=== PATIENT | female | born 1990 | race Caucasian/White ===

== ENCOUNTER 2023-06-25 14:42 | Emergency (ER) | payer BC, SELFPAY ==
[2023-06-25] VITALS (22 sets, daily range): BP systolic 133–166; BP diastolic 82–106; PULSE 60–91; RESP 16–20; TEMP 36.2; O2SAT 95–98
--- NOTE | ~2023-06-25 | XR_ITS ---
EXAMINATION: XR abdomen/kub 1V DATE: 06/25/2023 15:09 INDICATION: Abdominal pain and nausea TECHNIQUE: A supine view of the abdomen on 3 radiographs was obtained. COMPARISON: None. FINDINGS: Small amount of stool primarily in the proximal colon. No dilated loops of gas-filled bowel to sugges t obstruction. Couple small round phleboliths in the left hemipelvis. Bones are unremarkable. Visuali zed portions of the lung bases are clear. IMPRESSION: 1. Normal bowel gas pattern. Reviewed, dictated and finalized at location A.
--- NOTE | 2023-06-25 14:48 | ED.ABDPAIN ---
HPI - Abdominal Pain General Chief Complaint: Abdominal Pain Stated Complaint: abdominal pain Time Seen by Provider: 06/25/23 14:48 Source: patient Mode of arrival: ambulatory Limitations: no limitations History of Present Illness HPI narrative: Patient is a 33-year-old female with right upper quadrant abdominal pain for the past 3 days. She has associated nausea vomiting and diarrhea. MD elicited complaint: abdominal pain Pertinent past history: none Onset (ago): day(s) (3) Pain Consistency: constant Location: RUQ Severity: severe Pain scale (0-10): 8 Quality: cramping and sharp Radiation: R flank Migration to: no migration Exacerbating factors: other ( palpation of the area) Relieving factors: nothing Associated symptoms: nausea, vomiting, diarrhea and chills Related Data Home Medications Medication Instructions Recorded Confirmed divalproex 500 mg tablet,delayed 500 mg PO BID 06/25/23 06/25/23 release hydroxyzine HCl 50 mg tablet 50 mg PO QID 06/25/23 06/25/23 Allergies Allergy/AdvReac Type Severity Reaction Status Date / Time No Known Allergies Allergy Verified 06/25/23 14:50 Review of Systems Review of Systems: All systems reviewed & are unremarkable except as noted in HPI and below Constitutional: Constitutional: Reports no additional constitutional complaints Eyes: Eyes: Reports no additional eye complaints ENT: Reports system reviewed and no additional complaints, except as documented Cardiovascular: Cardiovascular: Reports no additional cardiovascular complaints Respiratory: Respiratory: Reports no additional respiratory complaints Gastrointestinal: Gastrointestinal: Reports no additional gastrointestinal complaints Genitourinary: Genitourinary: Reports no additional female genitourinary complaints Musculoskeletal: Musculoskeletal: Reports no additional musculoskeletal complaints Integumentary/Breasts: Skin/Breast: Reports system reviewed and no additional complaints, except as docu Neurologic: Reports system reviewed and no additional complaints, except as documented Psychiatric: Psychiatric: Reports no additional psychiatric complaints Endocrine: Endocrine: Reports no additional endocrine complaints Hematologic/Lymphatic: Hematologic/Lymphatic: Reports no additional hematologic/lymphatic complaints Allergic/Immunologic: Allergic/Immunologic: Reports no additional allergic/immunologic complaints PMFSH Social History Social History Smoking status: Current every day smoker Alcohol intake: current Exam Const: General: healthy appearing Nutritional Appearance: well nourished Orientation/consciousness: patient oriented x3 HENMT: Head: normal to inspection Ears: external ears normal Face/Nose/Sinus: Normal external nose present Eyes: Conjunctivae: conjunctivae normal Pupils: Equal, round and reactive pupils present EOM: EOMs intact bilaterally Neck: Neck: normal visual inspection Chest: Chest palpation & inspection: normal inspection of the chest Resp: Effort & Inspection: normal respiratory effort and not labored Auscultation: clear to auscultation bilaterally Cardio: Rate: regular rate Rhythm: regular rhythm Heart sounds: no murmurs GI: Inspection: non-distended GI Palp: Yes Soft to palpation, Yes Tenderness to palpation present (GI) ( right upper quadrant with Barone sign positive), Yes Guarding due to palpation present (GI), No Rigid due to palpation, No Hernia present, No Palpable mass present and No Rebound tenderness present Auscultation: normal bowel sounds : General: Yes bladder normal to palpation Back/Spine/Pelvis: Back: no CVA tenderness Skin: General skin exam: normal color Rashes: no rashes Wounds: no wounds Neuro: General: patient oriented x3 Cranial nerves: Yes Nystagmus not present Speech: normal speech Extrem: General: normal to inspection Psych: Mental Status: mental stat
--- NOTE | 2023-06-25 15:31 | PC.NURSE ---
Screen Operator at bedside drawing labs. Urine sample had already been transported to lab by PCT.
[2023-06-25 15:37] LABS: Basophils Absolute Auto 0.08 K/mm3 (0.00-0.10); Basophils Percent Auto 0.6 % (0.0-1.0); Eosinophils Absolute Auto 0.54 K/mm3 (0.02-0.50); Eosinophils Percent Auto 3.8 % (1.0-6.0); Hematocrit 42.3 % (35.0-49.0); Hemoglobin 14.4 g/dL (12.0-15.0); Immature Granulocyte Absolute 0.08 K/mm3 (0.00-0.00); Immature Granulocyte Percent A 0.6 % (0.0-0.0); Lymphocytes Percent Auto 30.6 % (18.0-42.0); Mean Corpuscular Hemoglobin 30.6 pg (27.0-31.0); Mean Platelet Volume 11.3 fl (9.2-11.8); Monocytes Absolute Auto 0.68 K/mm3 (0.10-0.90); Monocytes Percent Auto 4.7 % (2.0-11.0); Neutrophils Absolute Auto 8.59 K/mm3 (1.70-7.20); Neutrophils Percent Auto 59.7 % (50.0-70.0); Platelet Count Result 275 K/mm3 (150-420); Red Cell Distribution Width 11.8 % (11.6-14.4); White Blood Count 14.4 K/mm3 (4.8-10.8)
[2023-06-25 15:49] LABS: Bilirubin Urine Negative (Negative); Blood Urine 3+ (Negative); Color Urine Yellow (Yellow); Glucose Urine UA Negative (Negative); Ketones Urine Negative (Negative); Leukocyte Esterase Ur Negative LEU/UL (Negative); Nitrate Urine Negative (Negative); Protein Urine Trace (Negative); Specific Grav Ur >= 1.030 (1.010-1.020); Urobilinogen Urine 0.2 mg/dL (0.2-1.0)
[2023-06-25 15:53] LABS: INR 0.9; Partial Thromboplastin Time 26.6 Sec (23.9-30.70); Prothrombin Time 10.1 Seconds (9.50-12.1)
[2023-06-25 15:56] LABS: Alanine Aminotransferase 11 U/L (14-59); Albumin Level 3.3 g/dL (3.4-5.0); Alkaline Phosphatase 57 U/L (46-116); Anion Gap 10 mmol/L (4-12); Appearance Urine Sl Cloudy (Clear); Aspartate Amino Transferase 14 U/L (15-37); Bilirubin,Total 0.3 mg/dL (0.00-1.00); Blood Urea Nitrogen 9 mg/dL (7-18); Calcium 8.9 mg/dL (8.5-10.1); Carbon Dioxide 26 mmol/L (21-32); Chloride 103 mmol/L (98-108); Estimated Glomerular Filt Rate > 60; Glucose 107 mg/dL (70-99); Lipase 20 U/L (16-77); Osmolality Calculated 286 mOsm/kg (285-295); Potassium 3.7 mmol/L (3.5-5.1); Sodium 139 mmol/L (136-145); Total Protein 7.5 g/dL (6.4-8.2)
[2023-06-25 15:57] LABS: Add Urine Microscopic? YES; Amorphous Sediment Urine Few; Bacteria Urine 1+ /hpf; Mucus Urine Moderate /lpf; Squamous Epithelial Cell Urine Few /hpf (Few)
[2023-06-25 16:00] LABS: Lactic Acid Reflex 0.6 mmol/L (0.4-2.0)
--- NOTE | 2023-06-25 16:40 | PCDIET ---
ERP at bedside discussing plan of care with Pt. ERP concerned for possible issue with gallbladder and wants to obtain a CT, however CT scanner at this facility is not working currently. Pt agreeable to EMS transport to [facility] for CT scan, then transport back to [place] to await dispo decision.
--- NOTE | 2023-06-25 16:45 | PC.NURSE ---
call to [facility] [employer], request to sent pt for ct scan. spoke with mattie in ct scan to notify. will send pt with ems for ct and return.
[2023-06-25 16:56] LABS: Pregnancy On Board Control Positive; Urine Pregnancy Test Negative
[2023-06-25] MEDS: MORPHINE SULFATE (*CRX) 2 MG/ML INJ 4 MG IV PUSH (16:57)
[2023-06-25] MEDS: PIPERACILLN/TAZ 3.375GM/NS50ML 3.375 GM/50 ML BAG IVPB (16:59)
--- NOTE | 2023-06-25 17:18 | PC.NURSE ---
[facility] has arrived to transport Pt to [facility] for CT scan. Pt out of dept until further notice.
--- NOTE | 2023-06-25 18:30 | PC.NURSE ---
Pt has returned from [facility]. Awaiting CT results.
--- NOTE | 2023-07-02 12:41 | PC.NURSE ---
07/02/23 FINAL BLOOD CULTURE NO GROWTH AFTER 5 DAYS
== END 2023-06-25 20:19 | disposition short-term general hospital (02) ==
PROVIDERS: Emergency Provider Emergency Medicine
DX: K81.9 Cholecystitis, unspecified (principal); F17.210 Nicotine dependence, cigarettes, uncomplicated
CPT/HCPCS: 36415; 74018; 74177; 80053; 81001; 81025; 83605; 83690; 85025; 85610; 85730; 87040; 96365; 96375; 99284; 99285; J2270; J2543; Q9967

== ENCOUNTER 2023-06-25 17:34 | Outpatient (CLI) | payer OTHER, SELFPAY ==
--- NOTE | ~2023-06-25 | CT_ITS ---
EXAMINATION: CT abdomen pelvis w con DATE: 06/25/2023 18:04 INDICATION: Right upper quadrant abdominal pain radiating to the back TECHNIQUE: Computed tomography (CT) of the abdomen and pelvis was performed with 100 mL Omnipaque-350 intravenous contrast. Automated exposure control and iterative reconstruction technique were employe d. The dose-length product was 1350.92 mGy-cm. COMPARISON: None FINDINGS: Minimal dependent atelectasis in bilateral lower lobes. Calcified right hilar lymph node along the co uple small splenic calcific lesions consistent with old granulomatous disease. Heart size is normal. No pericardial or pleural effusion. Gallstones within the gallbladder which without dilation or wall thickening but with trace amount of pericholecystic fluid at the gallbladder fossa. Liver is normal. No intra or extra hepatic biliary ductal dilation. Pancreas, bilateral adrenal glands and kidneys are normal. Bowels including the appendix are normal. Bladder, uterus and bilateral adnexa are normal. N o free intraperitoneal gas or fluid. No pathologically enlarged abdominal or pelvic lymphadenopathy. Mild to moderate lower thoracic spondylosis with minimal likely physiologic anterior wedging of a few lower thoracic vertebral bodies. IMPRESSION: 1. Cholelithiasis with trace amount of pericholecystic fluid which is suspicious for acute cholecysti tis but without the gallbladder dilation or abnormal wall thickening more typically seen with acute c holecystitis. Consider HIDA scan to assess for cystic duct patency. Reviewed, dictated and finalized at location A. IMPRESSION: 1. Cholelithiasis with trace amount of pericholecystic fluid which is suspiciou s for acute cholecystitis but without the gallbladder dilation or abnormal wall thickening more typically seen with acute cholecystitis. Consider HIDA scan to assess for cystic duct patency.
== END 2023-06-25 17:35 | disposition home or self-care (01) ==
LOC: ANHIMG 17:42
DX: R10.11 Right upper quadrant pain (principal); K80.20 Calculus of gallbladder without cholecystitis without obstruction
CPT/HCPCS: 74177; Q9967

== ENCOUNTER 2023-06-25 21:27 | Observation (INO) | payer BC, SELFPAY ==
[2023-06-25 20:48] VITALS: BP 133/96; PULSE 73; RESP 18; TEMP 36.6; O2SAT 98; BMI 44.3
--- NOTE | 2023-06-25 21:06 | ADMGEN ---
This patient, Arelis Park, was admitted to 2 Medical Room 242-01. Patient/family oriented to hospital policies and general routines including ID bracelet, bed and alarms, visiting hours, pain management, procedures, bathroom and other care routines, personal items, smoking policy, room service/diet, and visiting hours. Information on how to activate the Rapid Response Team has been discussed. Patient/Family are encouraged to report perceived risks to care and to ask questions if they do not understand what they are told or what they should do.
[2023-06-25] MEDS: LACTATED RINGERS 1,000 ML 125 ML IV CONT (21:57)
[2023-06-25] MEDS: ONDANSETRON INJ 4 MG/2 ML VIAL IV PUSH (21:59)
[2023-06-25] MEDS: IBUPROFEN IV 400 MG in SODIUM CHLORIDE 0.9% IV 100 ML 208 MG IVPB (22:02)
[2023-06-25] MEDS: DIVALPROEX SODIUM DR 250 MG TABEC 500 MG PO (22:14)
[2023-06-25] MEDS: NICOTINE (*PBKC) 21 MG PATCH 1 PATCH TRANSDERM (22:14)
[2023-06-26] VITALS (14 sets, daily range): BP systolic 111–180; BP diastolic 70–98; PULSE 53–80; RESP 14–22; TEMP 36.2–36.9; O2SAT 93–100
[2023-06-26] MEDS: LACTATED RINGERS 1,000 ML 125 ML IV CONT (04:58)
[2023-06-26 05:02] LABS: Hematocrit 39.2 % (37.0-47.0); Hemoglobin 13.1 g/dL (12.0-15.0); Mean Corpuscular HGB Conc 33.4 g/dl (32-36); Mean Corpuscular Hemoglobin 30.9 pg (26-34); Mean Corpuscular Volume 92.5 fl (80-100); Mean Platelet Volume 11.6 fl (7.4-10.4); Platelet Count Result 250 k/mm3 (150-375); Red Blood Count 4.24 M/mm3 (4.2-5.4); Red Cell Distribution Width 12.2 % (11.5-14.5); White Blood Count 13.1 K/mm3 (4.5-10.0)
[2023-06-26 05:21] LABS: Alanine Aminotransferase 26 U/L (6-35); Albumin Level 3.8 g/dL (3.5-5.1); Alkaline Phosphatase 64 U/L (38-126); Anion Gap 5 mmol/L (4-12); Aspartate Amino Transferase 28 U/L (14-36); Bilirubin,Total 0.7 mg/dL (0.2-1.3); Blood Urea Nitrogen 7 mg/dL (7-17); Calcium 8.9 mg/dL (8.4-10.2); Carbon Dioxide 25 mmol/L (22-30); Chloride 108 mmol/L (98-107); Estimated CRCL calculation 87 ml/min; Estimated Glomerular Filt Rate > 60; Glucose 98 mg/dL (65-110); Lipase 41 U/L (23-300); Potassium 3.9 mmol/L (3.4-5.0); Sodium 138 mmol/L (137-145)
[2023-06-26] MEDS: IBUPROFEN IV 400 MG in SODIUM CHLORIDE 0.9% IV 100 ML 208 MG IVPB (06:15)
[2023-06-26] MEDS: NICOTINE (*PBKC) 21 MG PATCH 1 PATCH TRANSDERM (10:34)
[2023-06-26] MEDS: MORPHINE SULFATE (*CRX) 2 MG/ML INJ IV PUSH ×3 (10:35→15:50)
--- NOTE | 2023-06-26 12:10 | PM.IMHP ---
H&P: HPI History of Present Illness Date/Time: 06/26/23 12:10 Chief Complaint: Right upper quadrant pain Narrative: This is a 33-year-old woman who presented to the [facility] yesterday with complaints of abdominal pain since Monday night. She had eaten out at a restaurant Monday night prior to the pain starting. She has been having intermittent pains for the past several weeks but this has become more constant now. She also had some nausea and vomiting. In the emergency department in [place], she was noted to have an elevated white blood count and imaging showed evidence of acute cholecystitis. She was then transferred to [facility] for further treatment. Review of Systems Review of Systems: All systems reviewed & are unremarkable except as noted in HPI and below Constitutional: Constitutional: Denies chills and Denies fever(s) Eyes: Eyes: Denies change in vision ENT: Denies hearing loss, Denies neck pain and Denies sore throat Cardiovascular: Cardiovascular: Denies chest pain and Denies dyspnea Respiratory: Respiratory: Denies cough, Denies dyspnea and Denies wheezing Gastrointestinal: Gastrointestinal: Reports as per HPI Genitourinary: Genitourinary: Denies hematuria and Denies dysuria Musculoskeletal: Musculoskeletal: Denies arthralgias, Denies joint swelling and Denies neck pain Allergic/Immunologic: Allergic/Immunologic: Denies wheezing PMFSH Past Medical History Medical History (Updated 06/26/23 @ 12:14 by Larry Multani DO) Anxiety Bipolar disorder Tobacco abuse Surgical History Surgical History (Updated 06/26/23 @ 12:12 by Larry Multani DO) History of ankle surgery Family History Family History (Updated 06/25/23 @ 21:10 by Deb Danielle RN) Grandparent Acute myocardial infarction Mother History of blood clots Chronic obstructive pulmonary disease Clotting disorder Grandparent Diabetes mellitus Hypertension Father Diabetes mellitus Hypertension Lipid disorder Social History Social History Smoking packs per day: 1 Smoking cigarettes per day: 20.0 Smoking status: Current every day smoker Alcohol intake: former Substance use type: marijuana Do You Feel Safe in your Home?: Yes Lack of Transportation: No Lack of Food: Never True Current Housing: I Have Housing Concerned About Future Housing: No Difficulty Paying Gas/Electric Bills: No Difficulty Paying for Meds: No Currently Unemployed: No Education: Grade School Difficulty w/ Childcare or Family Care: No Spiritual care concerns: No Meds Home Medications and Allergies Home Medications Medication Instructions Recorded Confirmed Type divalproex 500 mg tablet,delayed 500 mg PO BID 06/25/23 06/25/23 History release hydroxyzine HCl 50 mg tablet 50 mg PO QID PRN Anxiety 06/25/23 06/25/23 History lisinopril 10 mg tablet 10 mg PO DAILY 06/25/23 06/25/23 History Allergies Allergy/AdvReac Type Severity Reaction Status Date / Time No Known Allergies Allergy Verified 06/25/23 14:50 Vital Signs Vital Signs - 24 hr 06/25/23 21:21 06/25/23 20:48 06/26/23 05:13 Temperature 36.6 C 36.6 C Pulse Rate 73 59 L Respiratory Rate 18 17 Blood Pressure 133/96 H 111/70 Pulse Oximetry 98 99 Oxygen Delivery Room Air 06/26/23 08:15 Temperature Pulse Rate Respiratory Rate Blood Pressure Pulse Oximetry Oxygen Delivery Room Air Exam Const: General: alert; No acute distress Orientation/consciousness: patient oriented x3 Limitations: no limitations HENMT: Head: normocephalic and atraumatic Ears: hearing grossly normal bilaterally Face/Nose/Sinus: Normal external nose present and Normal nares present Mouth: Yes Normal oral and palatal mucosa present and Yes moist mucous membranes Eyes: General: appearance normal, both eyes and all related structures Conjunctivae:
--- NOTE | 2023-06-26 12:15 | WPDHPUPDATE1 ---
History and Physical Update Update Date/Time: 06/26/23 12:15 History and Physical has been reviewed, including an updated exam of the patient. There are NO changes in the patient's condition. Risks, benefits, and alternatives have been discussed and questions answered. Patient agrees to proceed with procedure.
[2023-06-26] MEDS: ONDANSETRON INJ 4 MG/2 ML VIAL IV PUSH ×2 (12:28→22:39)
--- NOTE | 2023-06-26 18:31 | PC.NURSE ---
To OR via bed, IV R forearm.
--- NOTE | 2023-06-26 18:49 | WPDANESEPPF ---
Anes - Initial Pre Proc Eval Procedure: Operation Date: 06/26/23 19:00 Proposed Procedures p Laparoscopic Cholecystectomy, Possible Open - Larry Multani DO Date/Time: 06/26/23 18:49 Surgeon: Larry Multani DO Pre Op Diagnosis: Acute calculous chloecystitis Patient Data Age: 33 Gender: F Height: 1.55 m Weight: 106.5 kg Last Vital Signs Temp 36.4 C 06/26/23 14:00 Pulse 60 06/26/23 14:00 Resp 14 06/26/23 14:00 BP 118/72 06/26/23 14:00 Pulse Ox 99 06/26/23 14:00 O2 Del Method Room Air 06/26/23 08:15 Allergies Allergy/AdvReac Type Severity Reaction Status Date / Time No Known Allergies Allergy Verified 06/26/23 18:53 Home Medications Medication Instructions Recorded Confirmed Type divalproex 500 mg tablet,delayed 500 mg PO BID 06/25/23 06/25/23 History release hydroxyzine HCl 50 mg tablet 50 mg PO QID PRN Anxiety 06/25/23 06/25/23 History lisinopril 10 mg tablet 10 mg PO DAILY 06/25/23 06/25/23 History Laboratory Tests 06/26/23 04:19 WBC 13.1 H K/mm3 (4.5-10.0) RBC 4.24 M/mm3 (4.2-5.4) Hgb 13.1 g/dL (12.0-15.0) Hct 39.2 % (37.0-47.0) MCV 92.5 fl (80-100) MCH 30.9 pg (26-34) MCHC 33.4 g/dl (32-36) RDW 12.2 % (11.5-14.5) Plt Count 250 k/mm3 (150-375) MPV 11.6 H fl (7.4-10.4) Sodium 138 mmol/L (137-145) Potassium 3.9 mmol/L (3.4-5.0) Chloride 108 H mmol/L (98-107) Carbon Dioxide 25 mmol/L (22-30) Anion Gap 5 mmol/L (4-12) BUN 7 mg/dL (7-17) Creatinine 0.90 mg/dL (0.7-1.0) Estim Creat Clear Calc 87 ml/min Estimated GFR > 60 (59 - ) Glucose 98 mg/dL (65-110) Calcium 8.9 mg/dL (8.4-10.2) Total Bilirubin 0.7 mg/dL (0.2-1.3) AST 28 U/L (14-36) ALT 26 U/L (6-35) Alkaline Phosphatase 64 U/L (38-126) Total Protein 7.0 g/dL (6.3-8.2) Albumin 3.8 g/dL (3.5-5.1) Lipase 41 U/L (23-300) Patient hx anesthesia problems: none Family hx anesthesia problems: none Results Review: All pre-operative results and documents have been reviewed as part of the pre-operative evaluation. [facility] Past Medical History Medical History (Updated 06/26/23 @ 18:50 by Antonio Kerr DO) Anxiety Bipolar disorder History of suicide attempt Hypertension Tobacco abuse Surgical History Surgical History (Updated 06/26/23 @ 12:12 by Larry Multani DO) History of ankle surgery Family History Family History (Updated 06/25/23 @ 21:10 by Deb Danielle RN) Grandparent Acute myocardial infarction Mother History of blood clots Chronic obstructive pulmonary disease Clotting disorder Grandparent Diabetes mellitus Hypertension Father Diabetes mellitus Hypertension Lipid disorder Social History Social History Smoking packs per day: 1 Smoking cigarettes per day: 20.0 Smoking status: Current every day smoker Alcohol intake: former Substance use type: marijuana Do You Feel Safe in your Home?: Yes Lack of Transportation: No Lack of Food: Never True Current Housing: I Have Housing Concerned About Future Housing: No Difficulty Paying Gas/Electric Bills: No Difficulty Paying for Meds: No Currently Unemployed: No Education: Grade School Difficulty w/ Childcare or Family Care: No Spiritual care concerns: No Anes - Eval Final PreProcedure Day of Procedure 06/26/23 18:49 Patient weight: morbidly obese Heart: regular rate and rhythm Lungs: clear to auscultation Airway: Mallampati scale class II and special considerations poor dentition Neurological: alert and oriented Last oral intake: >/= 8 hours ASA classification: III Emergent: no Anesthetic plan: proceed Anesthesia type and monitoring: general ETT and standard monitoring Results Review: All pre-operative results and documents have been rev
[2023-06-26] MEDS: ceFAZolin 2 GM/D5W 50 ML 2 GM/50 ML BAG IVPB (19:30)
[2023-06-26] MEDS: BUPIVACAINE/EPINEPHRINE 0.5% 50 ML VIAL 30 ML INFILTRATE (19:44)
--- NOTE | 2023-06-26 20:23 | W.PM.PROC2 ---
Procedure Note - Detailed Date of Procedure 06/26/23 Pre-op Diagnosis Acute calculous cholecystitis Post-op Diagnosis Same (Acute/chronic calculous cholecystitis) Procedure Performed Laparoscopic Cholecystectomy Surgeon Larry Multani DO Anesthesia General and Local (0.5% bupivacaine) Indications This is a 33-year-old woman who presented to the emergency department in [place] with right upper quadrant pain for the past several days. She has also had symptoms like this off and on for the past few weeks. She has noticed that eating heavier foods causes her pain. In the emergency department she was noted to have an elevated white blood count and CT showed evidence of acute calculous cholecystitis. She was transferred to [facility] for further treatment. Discussions were made with the patient about treatment options and decision was made to proceed with laparoscopic cholecystectomy, possible open. Findings Laparoscopic cholecystectomy was performed. The patient was found to have evidence of chronic cholecystitis. The gallbladder wall was thickened and there was inflammatory changes around the neck of the gallbladder. There appeared to be a large gallstone lodged at the distal neck of the gallbladder. The cystic duct appeared normal in size just beyond this. The gallbladder was removed and sent to the lab for pathology. Description of Procedure Procedure as well as risks, benefits, and alternatives were discussed with patient. Written consent was obtained and placed in chart prior to procedure. The patient was brought back to surgical suite. Patient was placed in supine position on operating table. Time-out was done to confirm patient and procedure. Patient was then intubated by the anesthesia department. Abdomen was prepped and draped in sterile fashion using chlorhexidine prep. 0.5% bupivacaine with epinephrine was infiltrated at each site of incision. A 5 millimeter incision was made near the umbilicus, and a 5 millimeter Optiview trocar was advanced through the abdominal layers under direct visualization. Once inside the abdominal cavity, carbon dioxide was insufflated to create a pneumoperitoneum. The camera was inserted and the abdomen was inspected. No immediate abnormalities were identified. The patient was placed in reverse Trendelenburg position and rotated slightly to the left. An 11 millimeter incision was made in the subxiphoid region, and an 11 millimeter trocar was inserted under direct visualization. Two 5 millimeter incisions were made in the right upper quadrant, and two 5 millimeter trocars were inserted under direct visualization. The gallbladder was identified and grasped at the fundus and retracted superiorly. It was then grasped at the infundibulum retracted laterally. Careful dissection around the neck of the gallbladder was performed using blunt dissection with a [place] grasper and hook electrocautery. The cystic duct was identified, and a window was created behind it. The cystic artery was also identified and a window was created behind it. The critical view of safety was identified, visualizing the cystic duct running directly into the neck of the gallbladder, and the cystic artery running directly into the wall of the gallbladder. A 5 millimeter clip family preservation officer was then used to place 2 clips proximally and 1 clip distally on both the cystic duct and cystic artery. They were then both transected using endoscopic scissors. Once safely away from the jeremy hepatitis, the gallbladder was dissected free from the liver bed using hook electrocautery. Hemostasis was achieved along the way. The gallbladder was removed completely and then removed through the subxiphoid port. The liver bed was then inspected. Hemostasis appeared adequate, and our clips appeared secure. The area was gently irrigated with sterile saline. No other abnormalities were seen. The patient was flattened out in bed, and 1 final inspection was m
[2023-06-26] MEDS: LACTATED RINGERS 1,000 ML 30 ML IV CONT (20:38)
[2023-06-26] MEDS: fentaNYL CITRATE INJ (*CRX) 100 MCG/2 ML VIAL 25 MCG IV PUSH ×4 (21:41→21:49)
[2023-06-26] MEDS: HYDROmorphone HCL INJ (*CRX) 1 MG/ML SYR 0.5 MG IV PUSH ×2 (21:53→21:58)
[2023-06-27] MEDS: MORPHINE SULFATE (*CRX) 4 MG/ML INJ IV PUSH ×2 (00:10→02:33)
[2023-06-27] MEDS: LACTATED RINGERS 1,000 ML 100 ML IV CONT (00:14)
[2023-06-27] MEDS: HYDROcodone/acetaminophen (*CRX) 10-325 MG TABLET 1 TAB PO ×3 (03:44→12:56)
[2023-06-27 03:50] VITALS: BP 112/61; PULSE 61; RESP 18; TEMP 36.8; O2SAT 94
[2023-06-27 05:36] LABS: Hematocrit 39.4 % (37.0-47.0); Hemoglobin 13.3 g/dL (12.0-15.0); Mean Corpuscular HGB Conc 33.8 g/dl (32-36); Mean Corpuscular Hemoglobin 31.2 pg (26-34); Mean Corpuscular Volume 92.5 fl (80-100); Mean Platelet Volume 11.8 fl (7.4-10.4); Platelet Count Result 237 k/mm3 (150-375); Red Blood Count 4.26 M/mm3 (4.2-5.4); Red Cell Distribution Width 11.9 % (11.5-14.5); White Blood Count 23.2 K/mm3 (4.5-10.0)
[2023-06-27] MEDS: ONDANSETRON INJ 4 MG/2 ML VIAL IV PUSH (05:52)
[2023-06-27] MEDS: IBUPROFEN 600 MG TABLET PO (05:52)
[2023-06-27 05:54] LABS: Anion Gap 8 mmol/L (4-12); Blood Urea Nitrogen 6 mg/dL (7-17); Calcium 9.2 mg/dL (8.4-10.2); Carbon Dioxide 23 mmol/L (22-30); Chloride 105 mmol/L (98-107); Estimated CRCL calculation 97 ml/min; Estimated Glomerular Filt Rate > 60; Glucose 118 mg/dL (65-110); Potassium 4.4 mmol/L (3.4-5.0); Sodium 136 mmol/L (137-145)
[2023-06-27 07:50] VITALS: BP 152/81; PULSE 60; RESP 14; TEMP 36.6; O2SAT 98
--- NOTE | 2023-06-27 08:03 | WPDANESPN ---
Anes - Prog Note Post-Op Date/Time: 06/27/23 08:03 Cardiovascular status: normal Respiratory status: normal Airway patency: baseline Mental status: baseline Post-Op hydration status: normal Vital Signs: Last Vital Signs Temp 36.8 C 06/27/23 03:50 Pulse 61 06/27/23 03:50 Resp 18 06/27/23 03:50 BP 112/61 06/27/23 03:50 Pulse Ox 94 06/27/23 03:50 O2 Del Method Nasal Cannula 06/26/23 22:00 O2 Flow Rate 2 06/26/23 22:00 FiO2 28 06/26/23 21:00 Pain Score (VAS): 2 I/O: Intake & Output 06/26/23 06/27/23 06/27/23 23:59 07:59 15:59 Intake Total 450 450 Output Total 500 Balance -50 450 Laboratory Tests 06/27/23 04:55 06/27/23 04:55 06/27/23 04:55 WBC 23.2 H RBC 4.26 Hgb 13.3 Hct 39.4 MCV 92.5 MCH 31.2 MCHC 33.8 RDW 11.9 Plt Count 237 MPV 11.8 H Sodium 136 L Potassium 4.4 Chloride 105 Carbon Dioxide 23 Anion Gap 8 BUN 6 L Creatinine 0.80 Estim Creat Clear Calc 97 Estimated GFR > 60 Glucose 118 H Calcium 9.2 Post-procedural complaints: none Patient Feedback: Patient satisfied with anesthetic care.
[2023-06-27 08:30] VITALS: O2SAT 98
[2023-06-27] MEDS: lisinopriL 10 MG TABLET PO (08:30)
[2023-06-27] MEDS: DIVALPROEX SODIUM DR 250 MG TABEC 500 MG PO (08:30)
[2023-06-27] MEDS: ENOXAPARIN 40 MG/0.4 ML SYRINGE SUB-Q (08:31)
[2023-06-27] MEDS: polyethylene glycoL 3350 17 GM POWD.PACK PO (08:31)
[2023-06-27] MEDS: NICOTINE (*PBKC) 21 MG PATCH 1 PATCH TRANSDERM (08:31)
[2023-06-27 09:55] VITALS: BP 138/72; PULSE 62; RESP 16; O2SAT 98
[2023-06-27 11:50] VITALS: BP 138/72; PULSE 56; RESP 18; TEMP 37; O2SAT 97
--- NOTE | 2023-06-27 13:06 | PM.DS ---
DS: Admitting Diagnosis Discharge Date 06/27/23 Admitting Diagnosis Acute cholecystitis DS: Discharge Diagnosis Discharge Diagnosis (1) Acute calculous cholecystitis: Code(s): K80.00 - Calculus of gallbladder with acute cholecystitis without obstruction Status: Acute DS: Summary Hospital Course Reason for hospitalization: This is a 33-year-old woman who presented to the [place] [facility] on 06/25/23 with complaints of abdominal pain. She has been having intermittent pains for the past several weeks but this has become more constant over the past few days.? She also had some nausea and vomiting.? In the emergency department in [place], she was noted to have an elevated white blood count and imaging showed evidence of acute cholecystitis.? She was then transferred to [facility] for further treatment. Hospital Course: Patient admitted to [facility] and discussions were made regarding treatment options. She was taken to surgery on 06/26/23 for a laparoscopic cholecystectomy. She had findings of chronic cholecystitis and was found to have a large gallstone lodged at the distal neck of the gallbladder. Surgery was uneventful. She was monitored overnight and her diet was advanced. She is tolerating a low-fat diet this morning. She is tolerating activity with minimal incisional pain. She is stable for discharge today. Follow up in [address] Dietrich. Time spent discussing smoking cessation with patient: 3 to 10 minutes Status at Discharge Functional status at discharge: independent ambulation Overall status at discharge: patient is progressing back to baseline Time Spent with Patient Time attestation: Total time spent providing and/or coordinating discharge services: Exam Const: General: comfortable and no acute distress Resp: Effort & Inspection: normal respiratory effort Auscultation: clear to auscultation bilaterally Cardio: Rate: regular rate Rhythm: regular rhythm GI: Inspection: non-distended and incision (incisions dry and intact) GI Palp: Yes Soft to palpation, Yes Tenderness to palpation present (GI) (incisional) and No Guarding due to palpation present (GI) Auscultation: normal bowel sounds Neuro: General: moves all extremities and no focal motor deficits Extrem: General: no calf tenderness and no edema Psych: Mental Status: mental status grossly normal Insight: Good insight present (Psych) DS: Data Data Completed and Pending Pending studies at discharge: Pending at discharge 06/26/23 19:42 Surgical [PTH] Routine Labs on day of discharge: Labs from last 24 hours 06/27/23 04:55 WBC 23.2 H RBC 4.26 Hgb 13.3 Hct 39.4 MCV 92.5 MCH 31.2 MCHC 33.8 RDW 11.9 Plt Count 237 MPV 11.8 H Sodium 136 L Potassium 4.4 Chloride 105 Carbon Dioxide 23 Anion Gap 8 BUN 6 L Creatinine 0.80 Estim Creat Clear Calc 97 Estimated GFR > 60 Glucose 118 H Calcium 9.2 Procedures/Treatments: Procedures Operation Date: 06/26/23 19:00 Actual Procedure Side Surgeon p Laparoscopic Cholecystectomy Not Applicable Larry Dietrich, DO Discharge Plan Discharge Attending physician on discharge: Larry Dietrich Discharging Clinician: Che Ricci Anticipated Discharge Date/Time: 06/27/23 13:13 Patient Disposition: Home, Self-Care Activity: may shower Diet: low fat Wound Care Instructions: incision open to air Discharge Instructions: DISCHARGE INSTRUCTION SHEET FOR HERNIA, GALLBLADDER AND APPENDIX SURGERIES DR. DIETRICH 1. May shower in 24 hours, no soaking in bath x 2weeks. 2. Call office for: Wound increasingly painful or bleeding Vomiting Fever of greater than 101 degrees 3. If no bowel movement for three days, take 1 oz. (30 ml) Milk of Magnesia or MiraLax 17g 1 to 2 times daily. 4. No heavy lifting > 10-15 pounds x 2 weeks for laparoscopic cholecystectomy or appendectomy. 5. No driv
== END 2023-06-27 14:14 | disposition home or self-care (01) ==
PROVIDERS: Admitting Provider Surgery; Visit Provider Surgery
PROC: 0FT44ZZ Resection of Gallbladder, Percutaneous Endoscopic Approach (ICD-10-PCS; CPT 47562; principal; 2023-06-26 19:00)
DX: K80.10 Calculus of gallbladder with chronic cholecystitis without obstruction (principal); I10 Essential (primary) hypertension; F31.9 Bipolar disorder, unspecified; F41.9 Anxiety disorder, unspecified; Z91.51 Personal history of suicidal behavior; F17.210 Nicotine dependence, cigarettes, uncomplicated; F12.90 Cannabis use, unspecified, uncomplicated; E66.01 Morbid (severe) obesity due to excess calories; Z68.41 Body mass index [BMI] 40.0-44.9, adult
CPT/HCPCS: 47562; 36415; 80048; 80053; 83690; 85027; 88304; A9270; G0378; J0690; J1100; J1170; J1200; J1650; J1741; J2250; J2270; J2405; J2704; J3010; J7030; J7120

== ENCOUNTER 2024-01-12 05:29 | Emergency (ER) | payer BC, SELFPAY ==
[2024-01-12 05:34] VITALS: BP 150/102; PULSE 81; RESP 18; TEMP 36.2; O2SAT 100
--- NOTE | 2024-01-12 05:47 | ED.DENTAL ---
HPI - Dental/Oral General Chief complaint: Dental/Oral Stated complaint: Dental Problem Time Seen by Provider: 01/12/24 05:41 Source: patient Mode of arrival: ambulatory Limitations: no limitations History of Present Illness HPI Narrative: this is a 34-year-old female with history of dental problems with a tooth decay presents with lower right molar tooth decay with surrounding inflammation and right lower jaw swelling with some right submandibular gland inflammation with no fever chills no shortness of breath. MD Complaint: tooth pain Teeth map: 1. dental pain with surrounding gum inflammation Onset (ago): day(s) Duration: constant Severity: moderate Relieving factors: NSAIDs Exacerbating factors: chewing and cold Context: history of dental caries Associated symptoms: gum swelling Related Data Home Medications Medication Instructions Recorded Confirmed divalproex 500 mg tablet,delayed 500 mg PO BID 06/25/23 01/12/24 release hydroxyzine HCl 50 mg tablet 50 mg PO QID PRN Anxiety 06/25/23 01/12/24 lisinopril 10 mg tablet 10 mg PO DAILY 06/25/23 01/12/24 Allergies Allergy/AdvReac Type Severity Reaction Status Date / Time No Known Allergies Allergy Verified 07/14/23 08:35 Review of Systems Review of Systems: All systems reviewed & are unremarkable except as noted in HPI and below PMFSH Past Medical History Medical History Anxiety Bipolar disorder History of suicide attempt Hypertension Tobacco abuse Surgical History Surgical History History of ankle surgery History of laparoscopic cholecystectomy 06/26/23 Family History Family History Grandparent Acute myocardial infarction Mother History of blood clots Chronic obstructive pulmonary disease Clotting disorder Grandparent Diabetes mellitus Hypertension Father Diabetes mellitus Hypertension Lipid disorder Social History Social History Smoking packs per day: 1 Smoking cigarettes per day: 20.0 Smoking status: Current every day smoker Alcohol intake: former Substance use type: marijuana Do You Feel Safe in your Home?: Yes Lack of Transportation: No Lack of Food: Never True Current Housing: I Have Housing Concerned About Future Housing: No Difficulty Paying Gas/Electric Bills: No Difficulty Paying for Meds: No Currently Unemployed: No Education: High School Diploma/GED Difficulty w/ Childcare or Family Care: No Spiritual care concerns: No Exam Const: General: healthy appearing and no acute distress Nutritional Appearance: well nourished Orientation/consciousness: patient oriented x3 Limitations: no limitations HENMT: Other: Right lower jaw inflammation Eyes: Conjunctivae: conjunctivae normal Neck: Neck: normal visual inspection and lymphadenopathy Chest: Chest palpation & inspection: normal inspection of the chest Resp: Effort & Inspection: normal respiratory effort Auscultation: clear to auscultation bilaterally Cardio: Rate: regular rate Rhythm: regular rhythm Course Course Emergency Course: will administer a dose of Augmentin p.o., and prescription for antibiotics and a work note to present to the patient. Vital Signs Vital signs: Vital Signs Temperature 36.2 C L 01/12/24 05:34 Pulse Rate 81 01/12/24 05:34 Respiratory Rate 18 01/12/24 05:34 Blood Pressure 150/102 H 01/12/24 05:34 Pulse Oximetry 100 01/12/24 05:34 Oxygen Delivery Room Air 01/12/24 05:34 Temperature 36.2 C L 01/12/24 05:34 Pulse Rate 81 01/12/24 05:34 Respiratory Rate 18 01/12/24 05:34 Blood Pressure 150/102 H 01/12/24 05:34 Pulse Oximetry 100 01/12/24 05:34 Oxygen Delivery Room Air 01/12/24 05:34 Critical Care Time Critical Care Time Critical Care Time: No Discharge Plan Discharge Clinical Impression: Dental abscess, Toothache Patient Disposition: Home, Self-Care Condition: Stable Instructions: Antibiotic Form, Dental Abscess (ED) Additional Instructions: Take medication as prescribed and follow with dentist for further evaluation and treatment. Prescriptions: New amoxicillin-pot clavulanate [Augmentin] 500-125 mg tablet 1 tablet PO TID Qty: 30 0RF No Action hydroxyzine HCl 50 mg tablet 50 mg PO QID PRN (Reason: Anxiety) divalproex 500 mg tablet,delayed release (DR/EC) 500 mg PO BID lisinopril 10 mg tablet 10 mg PO DAILY Follow-up/Referrals: UNKNOWN,DOCTOR [Primary Care Provider] - Stand Alone Forms: Work/School Release IP Time of Disposition: 05:52
[2024-01-12] MEDS: AMOXICILLIN/CLAVULANATE K 875-125 MG TAB 1 TABLET PO (05:50)
[2024-01-12 05:59] VITALS: BP 149/95; PULSE 74; RESP 18; O2SAT 98
== END 2024-01-12 05:59 | disposition home or self-care (01) ==
PROVIDERS: Emergency Provider Emergency Medicine
DX: K04.7 Periapical abscess without sinus (principal); I10 Essential (primary) hypertension; F17.210 Nicotine dependence, cigarettes, uncomplicated; Z79.899 Other long term (current) drug therapy
CPT/HCPCS: 99282; A9270

== ENCOUNTER 2024-01-14 09:05 | Emergency (ER) | payer BC, SELFPAY ==
--- NOTE | 2024-01-14 09:32 | PC.NURSE ---
PT LEFT WITH OUT BEING SEEN PT STATES SHE IS LEAVING AND WILL NOT BE DISRESPECTED AT 0930 PT WAS ONLY ASKED IF SHE PICKED UP THE ANTIBIOTIC THAT WAS SENT TO PHARMACY ON MONDAY NURSE DID EDUCATE PT THAT THE NEW ANTIBIOTIC WAS AUGMENTIN AND IT HAS AMOXICILLIN IN IT THAT THE ANTIBIOTIC WAS NOT JUST AMOXICILLIN PT THOUGHT IT WAS JUST [id number] AND WANTED SOMETHING STRONGER PT REEDUCATED ABOUT AUGMENTIN AND WENT TO CALL DOCTOR TO SEE PT PT LEFT BEFORE BEING SEEN BY DOCTOR PT A/0 X 4
--- NOTE | 2024-01-14 11:39 | ED_ITS ---
HPI - Dental/Oral General Chief complaint: Dental/Oral Stated complaint: dental pain Time Seen by Provider: 01/14/24 09:26 History of Present Illness HPI Narrative: LWBS Related Data Home Medications Medication Instructions Recorded Confirmed divalproex 500 mg tablet,delayed 500 mg PO BID 06/25/23 01/12/24 release hydroxyzine HCl 50 mg tablet 50 mg PO QID PRN Anxiety 06/25/23 01/12/24 lisinopril 10 mg tablet 10 mg PO DAILY 06/25/23 01/12/24 Allergies Allergy/AdvReac Type Severity Reaction Status Date / Time No Known Allergies Allergy Verified 01/14/24 09:08 [facility] Past Medical History Medical History Anxiety Bipolar disorder History of suicide attempt Hypertension Tobacco abuse Surgical History Surgical History History of ankle surgery History of laparoscopic cholecystectomy 06/26/23 Family History Family History Grandparent Acute myocardial infarction Mother History of blood clots Chronic obstructive pulmonary disease Clotting disorder Grandparent Diabetes mellitus Hypertension Father Diabetes mellitus Hypertension Lipid disorder Social History Social History Smoking packs per day: 1 Smoking cigarettes per day: 20.0 Smoking status: Current every day smoker Alcohol intake: former Substance use type: marijuana Do You Feel Safe in your Home?: Yes Lack of Transportation: No Lack of Food: Never True Current Housing: I Have Housing Concerned About Future Housing: No Difficulty Paying Gas/Electric Bills: No Difficulty Paying for Meds: No Currently Unemployed: No Education: High School Diploma/GED Difficulty w/ Childcare or Family Care: No Spiritual care concerns: No Discharge Plan Discharge Clinical Impression: Dentalgia Patient Disposition: Left Without Being Seen Prescriptions: No Action hydroxyzine HCl 50 mg tablet 50 mg PO QID PRN (Reason: Anxiety) divalproex 500 mg tablet,delayed release (DR/EC) 500 mg PO BID amoxicillin-pot clavulanate [Augmentin] 500-125 mg tablet 1 tablet PO TID Qty: 30 0RF lisinopril 10 mg tablet 10 mg PO DAILY Follow-up/Referrals: UNKNOWN,DOCTOR [Primary Care Provider] - Time of Disposition: 09:50
== END 2024-01-14 09:30 | disposition left against medical advice (07) ==
PROVIDERS: Emergency Provider Emergency Medicine
DX: K08.89 Other specified disorders of teeth and supporting structures (principal); I10 Essential (primary) hypertension; F17.210 Nicotine dependence, cigarettes, uncomplicated
CPT/HCPCS: 99199

== ENCOUNTER 2024-03-13 10:12 | Emergency (ER) | payer BC, SELFPAY ==
[2024-03-13 10:13] VITALS: BP 141/99; PULSE 89; RESP 18; TEMP 36.6; O2SAT 96
--- NOTE | 2024-03-13 10:14 | ED.DENTAL ---
HPI - Dental/Oral General Chief complaint: Dental/Oral Stated complaint: mouth pain Time Seen by Provider: 03/13/24 10:13 Source: patient Mode of arrival: ambulatory Limitations: no limitations History of Present Illness HPI Narrative: 34-year-old female with a history of smoking,anxiety, bipolar, hypertension presents to the ED with -- right lower dental pain with jaw pain/ jaw swelling the past few days. The patient has extensive dental caries . No fever or chills. MD Complaint: tooth pain Location: Tooth # ( -- extensive dental caries with excavating lesions) Onset (ago): day(s) Duration: constant Severity: severe Relieving factors: nothing Exacerbating factors: nothing Context: history of dental caries Treatment prior to arrival: none Related Data Home Medications ?Medication ?Instructions ?Recorded ?Confirmed ?Last Taken ?Type divalproex 500 mg tablet,delayed 500 mg PO BID 06/25/23 01/12/24 Unknown History release hydroxyzine HCl 50 mg tablet 50 mg PO QID PRN Anxiety 06/25/23 01/12/24 Unknown History lisinopril 10 mg tablet 10 mg PO DAILY 06/25/23 01/12/24 Unknown History Allergies Allergy/AdvReac Type Severity Reaction Status Date / Time No Known Allergies Allergy Verified 03/13/24 10:42 Review of Systems Review of Systems: All systems reviewed & are unremarkable except as noted in HPI and below PMFSH Past Medical History Medical History History of suicide attempt Hypertension Tobacco abuse Anxiety Bipolar disorder Surgical History Surgical History History of laparoscopic cholecystectomy 06/26/23 History of ankle surgery Family History Family History Grandparent Acute myocardial infarction Mother History of blood clots Chronic obstructive pulmonary disease Clotting disorder Grandparent Diabetes mellitus Hypertension Father Diabetes mellitus Hypertension Lipid disorder Social History Social History Smoking packs per day: 1 Smoking cigarettes per day: 20.0 Smoking status: Current every day smoker Alcohol intake: former Substance use type: marijuana Do You Feel Safe in your Home?: Yes Lack of Transportation: No Lack of Food: Never True Current Housing: I Have Housing Concerned About Future Housing: No Difficulty Paying Gas/Electric Bills: No Difficulty Paying for Meds: No Currently Unemployed: No Education: High School Diploma/GED Difficulty w/ Childcare or Family Care: No Spiritual care concerns: No Exam Const: General: no acute distress Nutritional Appearance: well nourished Orientation/consciousness: patient oriented x3 Limitations: no limitations HENMT: Head: normal to inspection Ears: external ears normal Face/Nose/Sinus: Normal external nose present Face and sinus: normal facial exam ( swelling of the right lower jaw) Mouth: Yes Normal oral and palatal mucosa present Teeth and gingiva: abnormal tooth and associated gingiva ( Tooth number 30, 31 has excavating lesion involving the entire tooth) Throat: posterior oropharynx normal Eyes: Conjunctivae: conjunctivae normal EOM: EOMs intact bilaterally Neck: Neck: normal visual inspection, no lymphadenopathy and no meningeal signs Chest: Chest palpation & inspection: normal inspection of the chest Resp: Effort & Inspection: normal respiratory effort Auscultation: clear to auscultation bilaterally Cardio: Rate: regular rate Rhythm: regular rhythm GI: GI Palp: Yes Soft to palpation Auscultation: normal bowel sounds Other: no tenderness/rigidity/rebound : General: Yes no CVA tenderness Back/Spine/Pelvis: Back: no CVA tenderness Skin: General skin exam: normal color Rashes: no rashes Wounds: no wounds Neuro: General: patient oriented x3, moves all extremities, no meningeal signs, no focal motor deficits and CN's II-XI intact bilaterally Cranial nerves: Yes Nystagmus not present Speech: normal speech Gait exam (Neuro): Normal gait present Extrem: General: normal to inspection and no clubbing, cyanosis or edema Psych: Mental Status: mental status grossly normal Affect: normal affect Attitude: cooperative Course Course Emergency Course: dental caries/ excavating lesions of tooth number 30 and 31. Will treat with clindamycin. Vital Signs Vital signs: Vital Signs Temperature 36.6 C 03/13/24 10:13 Pulse Rate 89 03/13/24 10:13 Respiratory Rate 18 03/13/24 10:13 Blood Pressure 141/99 H 03/13/24 10:13 Pulse Oximetry 96 03/13/24 10:13 Oxygen Delivery Room Air 03/13/24 10:13 Temperature 36.6 C 03/13/24 10:13 Pulse Rate 89 03/13/24 10:13 Respiratory Rate 18 03/13/24 10:13 Blood Pressure 141/99 H 03/13/24 10:13 Pulse Oximetry 96 03/13/24 10:13 Oxygen Delivery Room Air 03/13/24 10:13 MDM - Dental/Oral MDM Narrative Medical decision making narrative: dental caries dental abscess Differential Diagnosis Differential diagnosis: Likely gingival abscess and toothache Medical Records Attestation: I reviewed the patient's medical records. Discharge Plan Discharge Clinical Impression: Toothache, Dental abscess, Dental caries Patient Disposition: Home, Self-Care Condition: Stable Instructions: Antibiotic Form, Dental Abscess (ED), Toothache (ED) Patient Language: B[place] Prescriptions: New clindamycin HCl 300 mg capsule 300 mg PO Q8H Qty: 20 0RF No Action hydroxyzine HCl 50 mg tablet 50 mg PO QID PRN (Reason: Anxiety) divalproex 500 mg tablet,delayed release (DR/EC) 500 mg PO BID amoxicillin-pot clavulanate [Augmentin] 500-125 mg tablet 1 tablet PO TID Qty: 30 0RF lisinopril 10 mg tablet 10 mg PO DAILY Follow-up/Referrals: UNKNOWN,DOCTOR [Primary Care Provider] - Stand Alone Forms: Work/School Release IP Time of Disposition: 10:51
== END 2024-03-13 11:01 | disposition home or self-care (01) ==
PROVIDERS: Emergency Provider Internal Medicine Critical Care Medicine
DX: K04.7 Periapical abscess without sinus (principal); K02.9 Dental caries, unspecified; I10 Essential (primary) hypertension; F17.210 Nicotine dependence, cigarettes, uncomplicated
CPT/HCPCS: 99283

== ENCOUNTER 2024-03-16 23:07 | Emergency (ER) | payer BC, SELFPAY ==
--- OUTSIDE RECORDS SUMMARY | 2024-03-16 23:10 | XMS_ITS | Patient Health Record ---
[facility] Organization [facility] Address [address] [place] [address] Care Team Providers Care Senior Audit Manager Name Role Phone Obed Bejarano Primary Care Provider Allergies No Known Allergies Reason For Referral No Information Medications Medication SIG (Take, Route, Fr equency, Duration) Notes Start Date End Date Status Depakote ER 250 MG 1 tablet Orally Once a day for 30 day(s) Active traZODone HCl 150 MG 1 tablet at bedtime Orally Once a day for 30 day(s) Active SEROquel 100 MG 1 tablet at bedtime Orally Once a day for 30 day(s) Active hydrOXYzine HCl 25 MG 1 tablet as needed Orally three times daily for 30 days Ac tive Depakote ER 500 MG 1 tablet Orally Once a day for 30 day(s) Active Immunizations Vaccine Route Administration Date Status Comme nts FLU VAC NO PRSV 4VAL 6 mo+ IM Intramuscular 11/25/2020 Administered PT [facility] Social History Tobacco Use: Social History Observation Description Date Details (start date - stop date) Current Smoker NA - NA Dont use, Tobacco Use/Smoking Question Answer Notes Are you a current every day smoker Alcohol Screen (Audit-C) Question Answer Notes Did you have a drink containing alcohol in the p ast year? 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
--- OUTSIDE RECORDS SUMMARY | 2024-03-16 23:10 | XMS_ITS | Clinical Summary ---
Author Organization [facility] Address [facility] [place] [address] [place] [address] Care Team Providers Care Hydrometer Tester Name Role Phone None, Provider MD Primary Care Provider Unavaila ble Allergies No known active allergies Medications lisinopril (PRINIVIL) 10 MG tablet Take 1 tablet (10 mg total) by mouth daily. Active divalproex EC (DEPAKOTE) 125 MG tablet Take 1 tablet (125 mg total) by mouth 2 (two) times daily. Active hydrOXYzine (ATARAX) 25 MG tablet Take 1 tablet (25 mg total) by mouth every 6 (six) hours as needed for Anxiety. Active Encounters Date Type Department Care Team Description 02/02/2024 5:28 PM MARINE DIVER - 02/02/2024 5:52 PM MARINE DIVER Emergency [place] [facility] [facility] [address] Dental Swelling Discharge Disposition: Home or Self Care (Routine Discharge) 02/02/2024 Travel from Last 3 Months Social History Tobacco Use Types Packs/Day Years Used Date Smoking Tobacco: Never Assessed Comments Unknown Sex and Gender Information Value Date Recorded Sex Assigned at Not on file Legal Sex Female 5:55 PM [facility] Gender Identity Not on file Sexual Orientation Not on file Last Filed Vital Signs Vital Sign Reading Time Taken Comments Blood Pressure 151/95 02/02/2024 5:31 PM MARINE DIVER Pulse 112 02/02/2024 5:31 PM MARINE DIVER Temperature 36.7 ??C (98.1 ??F) 02/02/2024 5:31 PM CS T Respiratory Rate 18 02/02/2024 5:31 PM MARINE DIVER Oxygen Saturation 97% 02/02/2024 5:31 PM MARINE DIVER Inhaled Oxygen Concentration - - Weight 103.8 kg (228 lb 12.8 oz) 02/02/2024 5:31 PM MARINE DIVER Height 154.9 cm (5' 1 ) 02/02/2024 5:31 PM MARINE DIVER Body Mass Index 43.23 02/02/2024 5:31 PM MARINE DIVER Plan of Treatment Health Maintenance Due Date Last Done Comments Cervical Cancer Screening Pap Smear (Age 30 to 64) Every 3 Years 1989 Annual Physical 01/03/1992 DTaP, Tdap and Td Vaccines (5 - Tdap) 01/03/2000 12/22/1994, 06/03/1992, 07/03/1991, Additional history exists Hepatitis C 2007 Cervical Cancer Screening Pap with HPV Testing (Age 30 to 64) Every 5 Years 2019 Cervical Cancer Screening with HPV 2019 COVID-19 Vaccine ( season) 2023 07/07/2020, 06/09/2020 Influenza Adult (#1) 2023 11/25/2020, 04/01/19 21 Hepatitis B Vaccines Completed 05/19/1999, 01/07/1999, 11/26/1998 HPV Vaccines Aged Out No longer eligi ble based on patient's age to complete this topic Meningococcal Vaccine Aged Out No [place] eligible based on patient's age to complete this topic Pneumococcal Vaccine: Pediatrics (0 to 5 Years) and At-Risk Patients (6 to 64 Years) Aged Out No longer eligible based on patient's age to complete this topic RSV Immunizations Under 20 Months Aged Out No longer eligible based on patient's age to complete this topic Insurance [address] [address] Care Teams Hydrometer Tester Relationship Specialty Start Date End Date None, Provider, PCP - General UNKNOWN PHYSICIAN SPECIALTY 02/02/24
[2024-03-16 23:12] VITALS: BP 170/110; PULSE 105; RESP 20; TEMP 37.1; O2SAT 98
--- NOTE | 2024-03-16 23:17 | ED_ITS ---
HPI - Dental/Oral General Chief complaint: Dental/Oral Stated complaint: R side tooth pain Time Seen by Provider: 03/16/24 23:15 Source: patient Mode of arrival: ambulatory Limitations: no limitations History of Present Illness HPI Narrative: this is a 34-year-old female with a history of hypertension presents with some dental tooth decay with surrounding gum inflammation right lower molar area with some right lower jaw swelling and tenderness with some no fever chills no shortness of breath no nausea vomiting. Patient was seen in in the ER approximately 4 to 5 days ago and started on clindamycin but symptoms have steadily progressed. MD Complaint: tooth pain Teeth map: 2 1. toothache with some surrounding gum inflammation and right lower jaw swelling Onset (ago): day(s) Duration: constant Severity: moderate Severity scale (1-10): 8 Relieving factors: nothing Exacerbating factors: chewing and cold Context: history of dental caries Associated symptoms: gum swelling, pain with swallowing and ear pain Related Data Home Medications ?Medication ?Instructions ?Recorded ?Confirmed ?Last Taken ?Type divalproex 500 mg tablet,delayed 500 mg PO BID 06/25/23 01/12/24 Unknown History release hydroxyzine HCl 50 mg tablet 50 mg PO QID PRN Anxiety 06/25/23 01/12/24 Unknown History lisinopril 10 mg tablet 10 mg PO DAILY 06/25/23 01/12/24 Unknown History Allergies Allergy/AdvReac Type Severity Reaction Status Date / Time No Known Allergies Allergy Verified 03/13/24 10:42 Review of Systems 2 Review of Systems: All systems reviewed & are unremarkable except as noted in HPI and below PMFSH Past Medical History Medical History History of suicide attempt Hypertension Tobacco abuse Anxiety Bipolar disorder Surgical History Surgical History History of laparoscopic cholecystectomy 06/26/23 History of ankle surgery Family History Family History Grandparent Acute myocardial infarction Mother History of blood clots Chronic obstructive pulmonary disease Clotting disorder Grandparent Diabetes mellitus Hypertension Father Diabetes mellitus Hypertension Lipid disorder Social History Social History Smoking packs per day: 1 Smoking cigarettes per day: 20.0 Smoking status: Current every day smoker Alcohol intake: former Substance use type: marijuana Do You Feel Safe in your Home?: Yes Lack of Transportation: No Lack of Food: Never True Current Housing: I Have Housing Concerned About Future Housing: No Difficulty Paying Gas/Electric Bills: No Difficulty Paying for Meds: No Currently Unemployed: No Education: High School Diploma/GED Difficulty w/ Childcare or Family Care: No Spiritual care concerns: No Exam 2 Const: General: healthy appearing and no acute distress Nutritional Appearance: well nourished and obese Orientation/consciousness: patient oriented x3 Limitations: no limitations Eyes: Conjunctivae: conjunctivae normal Neck: Neck: no meningeal signs and lymphadenopathy Other: Right lower jaw swelling Resp: Effort & Inspection: normal respiratory effort Auscultation: clear to auscultation bilaterally Cardio: Rate: regular rate Rhythm: regular rhythm GI: GI Palp: Yes Soft to palpation Auscultation: normal bowel sounds : General: Yes bladder normal to palpation Urinary Catheter: Urinary Catheter: patent and draining Back/Spine/Pelvis: Back: no CVA tenderness Skin: General skin exam: normal color Rashes: no rashes Wounds: no wounds Neuro: General: patient oriented x3 Cranial nerves: Yes Nystagmus not present Extrem: General: normal to inspection Course Course Emergency Course: patient received 60mg IM Toradol and 1g IM ceftriaxone. Advised warm compresses, to discontinue her clindamycin and start Augmentin as prescribed. Critical Care Time Critical Care Time Critical Care Time: No Discharge Plan Discharge Clinical Impression: Dental caries, Toothache, Dental abscess Patient Disposition: Home, Self-Care Condition: Stable Instructions: Antibiotic Form, Dental Abscess (ED) Additional Instructions: Advised to take medication as prescribed, take [id number] Advil 800mg twice daily as needed and follow with dentist. Patient Language: Latvian Prescriptions: New amoxicillin-pot clavulanate [Augmentin] 500-125 mg tablet 1 tablet PO TID Qty: 30 0RF tramadol 50 mg tablet 50 mg PO Q6H PRN (Reason: pain) Qty: 20 0RF No Action hydroxyzine HCl 50 mg tablet 50 mg PO QID PRN (Reason: Anxiety) divalproex 500 mg tablet,delayed release (DR/EC) 500 mg PO BID amoxicillin-pot clavulanate [Augmentin] 500-125 mg tablet 1 tablet PO TID Qty: 30 0RF clindamycin HCl 300 mg capsule 300 mg PO Q8H Qty: 20 0RF lisinopril 10 mg tablet 10 mg PO DAILY Follow-up/Referrals: UNKNOWN,DOCTOR [Primary Care Provider] - Stand Alone Forms: Work/School Release IP Time of Disposition: 23:23
[2024-03-16] MEDS: KETOROLAC (*BKC) 60 MG/2 ML VIAL IM (23:29)
[2024-03-16] MEDS: cefTRIAXone 1 GM, LIDOCAINE 1% LOCAL INJ 2.1 ML IM (23:30)
[2024-03-16 23:47] VITALS: BP 145/105; PULSE 96; RESP 18; TEMP 36.6; O2SAT 99
== END 2024-03-16 23:47 | disposition home or self-care (01) ==
PROVIDERS: Emergency Provider Emergency Medicine
DX: K02.9 Dental caries, unspecified (principal); K04.7 Periapical abscess without sinus; I10 Essential (primary) hypertension; F17.210 Nicotine dependence, cigarettes, uncomplicated
CPT/HCPCS: 96372; 99283; J0696; J1885; J2003

== ENCOUNTER 2024-03-20 10:59 | Emergency (ER) | payer BC, SELFPAY ==
--- NOTE | ~2024-03-20 | CT_ITS ---
EXAMINATION: CT soft tissue neck w con DATE: 03/20/2024 15:09 INDICATION: Right submandibular edema. Facial abscess. TECHNIQUE: Computed tomography (CT) of the neck was performed with 75 mL Omnipaque-350 intravenous co ntrast. Automated exposure control and iterative reconstruction technique were employed. The dose-amador gth product was 558.75 mGy-cm. COMPARISON: None FINDINGS: There is peripheral enhancement surrounding a multilobulated right submandibular fluid collection whi ch measures 6.9 x 6.0 x 5.9 cm consistent with abscess. This abuts the right mandibular ramus and may arise from a periapical abscess surrounding the posterior most right mandibular molar which erodes t hrough the inferomedial cortex. There is a prominent dental Darlene at the crown of the tooth. There ar e additional dental caries involving multiple teeth along the left and right mandible and maxilla. Ad ditional periapical lucencies are seen at the posterior most molars at the bilateral maxilla and the left maxillary central incisor and canine. There is likely reactive mild bilateral submandibular and right internal jugular chain lymphadenopath y. The thyroid and bilateral submandibular and parotid glands are normal. Orbits are normal. Bilatera l mastoid air cells, middle ear cavities and paranasal sinuses are all clear. The visualized upper cecil ngs are clear. Superior mediastinum is unremarkable with normal caliber aortic arch with no dissectio n. The cervical vasculature is also unremarkable. Cervical spine is unremarkable. IMPRESSION: 1. 6.9 x 6.0 x 5.9 cm right submandibular abscess which appears to originate from a dental Darlene of t he posterior most right fibular molar with associated periapical abscess which erodes through the man dibular cortex. Reviewed, dictated and finalized at location B. SCREENER IMPRESSION: 1. 6.9 x 6.0 x 5.9 cm right submandibular abscess which appears to originate fr om a dental Darlene of the posterior most right fibular molar with associated per iapical abscess which erodes through the mandibular cortex.
[2024-03-20 11:13] VITALS: BP 150/98; PULSE 112; RESP 20; TEMP 36.1; O2SAT 100
--- OUTSIDE RECORDS SUMMARY | 2024-03-20 12:13 | XMS_ITS | Patient Health Record ---
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
--- OUTSIDE RECORDS SUMMARY | 2024-03-20 12:13 | XMS_ITS | Clinical Summary ---
Author Organization [facility] Address formerly [facility] [facility] [place] [address] [place] [address] Care Team Providers Care Medical Office Manager Name Role Phone None, Provider MD Primary [...] Department Care Team Description 02/02/2024 5:28 PM MECHANIC ASSISTANT - 02/02/2024 5:52 PM MECHANIC ASSISTANT Emergency [facility] [place] [address] Dental Swelling Discharge Disposition: Home or Self Care (Routine Discharge) 02/02/2024 Travel from Last 3 Months Social History Tobacco Use Types Packs/Day Years Used Date Smoking Tobacco: Never Assessed Comments Unknown Sex and Gender Information Value Date Recorded Sex Assigned at Not on file Legal Sex Female 5:55 PM MECHANIC ASSISTANT Gender Identity Not on file Sexual Orientation Not on file Last Filed Vital Signs Vital Sign Reading Time Taken Comments Blood Pressure 151/95 02/02/2024 5:31 PM MECHANIC ASSISTANT Pulse 112 02/02/2024 5:31 PM MECHANIC ASSISTANT Temperature 36.7 ??C (98.1 ??F) 02/02/2024 5:31 PM CS T Respiratory Rate 18 02/02/2024 5:31 PM MECHANIC ASSISTANT Oxygen Saturation 97% 02/02/2024 5:31 PM MECHANIC ASSISTANT Inhaled Oxygen Concentration - - Weight 103.8 kg (228 lb 12.8 oz) 02/02/2024 5:31 PM MECHANIC ASSISTANT Height 154.9 cm (5' 1 ) 02/02/2024 5:31 PM MECHANIC ASSISTANT Body Mass Index 43.23 02/02/2024 5:31 PM MECHANIC ASSISTANT Plan of Treatment Health Maintenance Due Date [...] patient's age to complete this topic Meningococcal B Vaccine Aged Out No l onger eligible based on patient's age to complete [...] patient's age to complete this topic Insurance [facility] Care Teams Medical Office Manager Relationship Specialty Start Date End Date None, Provider, PCP - General UNKNOWN PHYSICIAN SPECIALTY 02/02/24
--- NOTE | 2024-03-20 13:49 | ED_ITS ---
HPI - Dental/Oral General Chief complaint: Dental/Oral <Eugenia Benjamin PA-C - Last Filed: 03/20/24 18:54> Stated complaint: facial swelling <Eugenia Benjamin PA-C - Last Filed: 03/20/24 18:54> Time Seen by Provider: 03/20/24 16:42 <Eugenia Benjamin PA-C - Last Filed: 03/20/24 18:54> Focused HPI: 34 y/o female with a history of hypertension, anxiety, bipolar disorder presents to emergency department for a dental abscess for 1 week. Patient states he she began having swelling and pain to the right lower jaw for 1 week. She went to [place] emergency department on Monday of last week and was prescribed p.o. clindamycin. States she did not have any improvement with this or return to [place] emergency department on Monday. She is advised to discontinue the clindamycin and start Augmentin. She has been taking this with worsening of her abscess which prompted her to come in today. No difficulty with breathing or swallowing. Reports trismus and nausea as well as decreased appetite. No vomiting or known fevers. Denies possibility of . GENERAL: Well-appearing, well-nourished, and in no acute distress. HEAD: Normocephalic, atraumatic. ENT: Dental caries throughout. Limited exam secondary to trismus. Tolerating secretions, no dysphonia. Significant edema with induration and fluctuation to the right mandible with overlying cellulitic changes, edema and induration extending superiorly to the zygomatic bone distally, extending submandibularly to the left mandible CHEST: Clear to auscultation. ?No respiratory distress. HEART: Regular rate and rhythm.? NEURO: ?Alert and oriented x3. Patient screened in triage and initial orders placed.? ?Additional care and disposition to be based upon?diagnostic testing and treatment. <Eugenia Benjamin PA-C - Last Filed: 03/20/24 18:54> Related Data Home medications: Home Medications ?Medication ?Instructions ?Recorded ?Confirmed ?Last Taken ?Type divalproex 500 mg tablet,delayed 500 mg PO BID 06/25/23 01/12/24 Unknown History release hydroxyzine HCl 50 mg tablet 50 mg PO QID PRN Anxiety 06/25/23 01/12/24 Unknown History lisinopril 10 mg tablet 10 mg PO DAILY 06/25/23 01/12/24 Unknown History <Eugenia Benjamin PA-C - Last Filed: 03/20/24 18:54> Allergies/adverse reactions: Allergies Allergy/AdvReac Type Severity Reaction Status Date / Time No Known Allergies Allergy Verified 03/13/24 10:42 <Eugenia Benjamin PA-C - Last Filed: 03/20/24 18:54> [facility] Past Medical History Medical History: Medical History History of suicide attempt Hypertension Tobacco abuse Anxiety Bipolar disorder <LINDSAY Hernandes Last Filed: 03/20/24 18:54> Surgical History Surgical History: Surgical History History of laparoscopic cholecystectomy 06/26/23 History of ankle surgery <Eugenia Benjamin PA-C - Last Filed: 03/20/24 18:54> Family History Family History: Family History Grandparent Acute myocardial infarction Mother History of blood clots Chronic obstructive pulmonary disease Clotting disorder Grandparent Diabetes mellitus Hypertension Father Diabetes mellitus Hypertension Lipid disorder <Eugenia Benjamin PA-C - Last Filed: 03/20/24 18:54> Social History Social History: Social History Smoking packs per day: 1 Smoking cigarettes per day: 20.0 Smoking status: Current every day smoker Alcohol intake: former Substance use type: marijuana Do You Feel Safe in your Home?: Yes Lack of Transportation: No Lack of Food: Never True Current Housing: I Have Housing Concerned About Future Housing: No Difficulty Paying Gas/Electric Bills: No Difficulty Paying for Meds: No Currently Unemployed: No Education: High School Diploma/GED Difficulty w/ Childcare or Family Care: No Spiritual care concerns: No <LINDSAY Hernandes Last Filed: 03/20/24 18:54> Exam 2 Narrative: APPEARANCE: No apparent distress. Head: Large right-sided submandibular abscess. No trismus. No voice changes. EYES: EOMI, NOSE: Atraumatic NECK: Trachea midline RESPIRATORY: No increased rate of breathing CARDIOVASCULAR: RRR, ABDOMINAL: Non-distended MUSCULOSKELETAl: No obvious deformities NEURO: Alert. Moving 4/4 extremities SKIN:: Warm, dry. Normal color PSYCHIATRIC: Normal affect <Cirilo Kaye MD - Last Filed: 03/20/24 18:54> Course Vital Signs Vital signs: Vital Signs Temperature 97.0 F L 03/20/24 11:13 Pulse Rate 112 H 03/20/24 11:13 Respiratory Rate 20 03/20/24 11:13 Blood Pressure 150/98 H 03/20/24 11:13 Pulse Oximetry 100 03/20/24 11:13 Temperature 97.0 F L 03/20/24 11:13 Pulse Rate 73 03/20/24 18:06 Respiratory Rate 16 03/20/24 18:06 Blood Pressure 134/79 03/20/24 18:06 Pulse Oximetry 97 03/20/24 18:06 <Eugenia Benjamin PA-C - Last Filed: 03/20/24 18:54> Vital Signs Temperature 97.0 F L 03/20/24 11:13 Pulse Rate 112 H 03/20/24 11:13 Respiratory Rate 20 03/20/24 11:13 Blood Pressure 150/98 H 03/20/24 11:13 Pulse Oximetry 100 03/20/24 11:13 Temperature 97.0 F L 03/20/24 11:13 Pulse Rate 73 03/20/24 18:06 Respiratory Rate 16 03/20/24 18:06 Blood Pressure 134/79 03/20/24 18:06 Pulse Oximetry 97 03/20/24 18:06 <Cirilo Kaye MD - Last Filed: 03/20/24 18:54> MDM - Dental/Oral MDM Narrative Medical decision making narrative: -Course: 34-year-old female presenting with a large abscess of dental origin. Abscess is 2r7x2io. No trismus or respiratory distress. Patient will be transferred to a tertiary care center for drainage. Patient meets sepsis criteria with tachycardia and elevated white count of 22. Given a dose of pip/tazo and 30 cc/kilogram bolus with normalization of vital signs. Attempted to transfer the patient to [facility] but was declined due to lack of OMFS specialty. Eventually accepted to [facility]. Accepted by Dr. San. Patient declined ambulance due to cost. risks/benefits explained. She will go via private vehicle. <Cirilo Kaye MD - Last Filed: 03/20/24 18:54> Lab Data Result diagrams: 03/20/24 13:58 03/20/24 13:58 <Eugenia Benjamin PA-C - Last Filed: 03/20/24 18:54> Labs: Lab Results 03/20/24 Range/Units 13:58 WBC 22.8 H (4.5-10.0) K/mm3 RBC 4.71 (4.2-5.4) M/mm3 Hgb 15.0 (12.0-15.0) g/dL Hct 42.1 (37.0-47.0) % MCV 89.4 (80-100) fl MCH 31.8 (26-34) pg MCHC 35.6 (32-36) g/dl RDW 11.6 (11.5-14.5) % Plt Count 319 (150-375) k/mm3 MPV 11.0 H (7.4-10.4) fl Immature Gran % (Auto) 0.8 H (0-0.5) % Neut % (Auto) 80.3 H (45.5-73.1) % Lymph % (Auto) 12.1 L (18.3-44.2) % Petroleum % (Auto) 6.0 (2.6-8.5) % Eos % (Auto) 0.5 (0-4.4) % Baso % (Auto) 0.3 (0.2-1.2) % Lymph # (Auto) 2.75 (0.9-3.2) K/mm3 Petroleum # (Auto) 1.4 H (0.1-0.6) K/mm3 Eos # (Auto) 0.1 (0-0.3) K/mm3 Baso # (Auto) 0.1 (0.0-0.1) K/mm3 Abs Immat Gran (auto) 0.18 H (0.00-0.031) K/mm3 Absolute Neuts (auto) 18.3 H (1.3-6.7) K/mm3 Absolute Nucleated RBC 0.000 (0.0-0.012) K/mm3 Nucleated RBC % 0.0 (0.0-0.2) % ESR 15 (0-20) mm/hr Sodium 133 L (137-145) mmol/L Potassium 3.7 (3.4-5.0) mmol/L Chloride 99 (98-107) mmol/L Carbon Dioxide 22 (22-30) mmol/L Anion Gap 12 (4-12) mmol/L BUN 9 (7-17) mg/dL Creatinine 0.60 L (0.7-1.0) mg/dL Estim Creat Clear Calc 119 ml/min Estimated GFR > 60 (59 - ) Glucose 117 H (65-110) mg/dL Lactic Acid 0.8 (0.7-2.0) mmol/L Calcium 9.3 (8.4-10.2) mg/dL Total Bilirubin 1.1 (0.2-1.3) mg/dL AST 38 H (14-36) U/L ALT 71 H (6-35) U/L Alkaline Phosphatase 127 H (38-126) U/L C-Reactive Protein 14.1 H (<1.0) mg/dL Total Protein 9.0 H (6.3-8.2) g/dL Albumin 4.1 (3.5-5.1) g/dL <Eugenia Benjamin PA-C - Last Filed: 03/20/24 18:54> Lab Results 03/20/24 Range/Units 13:58 WBC 22.8 H (4.5-10.0) K/mm3 RBC 4.71 (4.2-5.4) M/mm3 Hgb 15.0 (12.0-15.0) g/dL Hct 42.1 (37.0-47.0) % MCV 89.4 (80-100) fl MCH 31.8 (26-34) pg MCHC 35.6 (32-36) g/dl RDW 11.6 (11.5-14.5) % Plt Count 319 (150-375) k/mm3 MPV 11.0 H (7.4-10.4) fl Immature Gran % (Auto) 0.8 H (0-0.5) % Neut % (Auto) 80.3 H (45.5-73.1) % Lymph % (Auto) 12.1 L (18.3-44.2) % Petroleum % (Auto) 6.0 (2.6-8.5) % Eos % (Auto) 0.5 (0-4.4) % Baso % (Auto) 0.3 (0.2-1.2) % Lymph # (Auto) 2.75 (0.9-3.2) K/mm3 Petroleum # (Auto) 1.4 H (0.1-0.6) K/mm3 Eos # (Auto) 0.1 (0-0.3) K/mm3 Baso # (Auto) 0.1 (0.0-0.1) K/mm3 Abs Immat Gran (auto) 0.18 H (0.00-0.031) K/mm3 Absolute Neuts (auto) 18.3 H (1.3-6.7) K/mm3 Absolute Nucleated RBC 0.000 (0.0-0.012) K/mm3 Nucleated RBC % 0.0 (0.0-0.2) % ESR 15 (0-20) mm/hr Sodium 133 L (137-145) mmol/L Potassium 3.7 (3.4-5.0) mmol/L Chloride 99 (98-107) mmol/L Carbon Dioxide 22 (22-30) mmol/L Anion Gap 12 (4-12) mmol/L BUN 9 (7-17) mg/dL Creatinine 0.60 L (0.7-1.0) mg/dL Estim Creat Clear Calc 119 ml/min Estimated GFR > 60 (59 - ) Glucose 117 H (65-110) mg/dL Lactic Acid 0.8 (0.7-2.0) mmol/L Calcium 9.3 (8.4-10.2) mg/dL Total Bilirubin 1.1 (0.2-1.3) mg/dL AST 38 H (14-36) U/L ALT 71 H (6-35) U/L Alkaline Phosphatase 127 H (38-126) U/L C-Reactive Protein 14.1 H (<1.0) mg/dL Total Protein 9.0 H (6.3-8.2) g/dL Albumin 4.1 (3.5-5.1) g/dL <Cirilo Kaye MD - Last Filed: 03/20/24 18:54> Discharge Plan Discharge Clinical Impression: Submandibular abscess <LINDSAY Hernandes Last Filed: 03/20/24 18:54> Patient Disposition: Acute Care Hospital <Euegnia Benjamin PA-C - Last Filed: 03/20/24 18:54> Condition: Stable <LINDSAY Hernandes Last Filed: 03/20/24 18:54> Instructions: Abscess (ED) <LINDSAY Hernandes Last Filed: 03/20/24 18:54> Additional Instructions: Please go directly to [facility] for admission. You have been accepted by Dr. San. <Eugenia Benjamin PA-C - Last Filed: 03/20/24 18:54> Patient Language: British <Eugenia Benjamin PA-C - Last Filed: 03/20/24 18:54> Prescriptions: No Action hydroxyzine HCl 50 mg tablet 50 mg PO QID PRN (Reason: Anxiety) divalproex 500 mg tablet,delayed release (DR/EC) 500 mg PO BID amoxicillin-pot clavulanate [Augmentin] 500-125 mg tablet 1 tablet PO TID Qty: 30 0RF clindamycin HCl 300 mg capsule 300 mg PO Q8H Qty: 20 0RF amoxicillin-pot clavulanate [Augmentin] 500-125 mg tablet 1 tablet PO TID Qty: 30 0RF tramadol 50 mg tablet 50 mg PO Q6H PRN (Reason: pain) Qty: 20 0RF lisinopril 10 mg tablet 10 mg PO DAILY <Eugenia Benjamin PA-C - Last Filed: 03/20/24 18:54> Follow-up/Referrals: UNKNOWN,DOCTOR [Primary Care Provider] - <Eugenia Benjamin PA-C - Last Filed: 03/20/24 18:54> Stand Alone Forms: Work/School Release IP <LINDSAY Hernandes Last Filed: 03/20/24 18:54>
--- NOTE | 2024-03-20 14:02 | PC.NURSE ---
pt states there is no chance of and would like to provide signature for any imaging
[2024-03-20 14:08] LABS: Basophils Absolute Auto 0.1 K/mm3 (0.0-0.1); Basophils Percent Auto 0.3 % (0.2-1.2); Eosinophils Absolute Auto 0.1 K/mm3 (0-0.3); Eosinophils Percent Auto 0.5 % (0-4.4); Hematocrit 42.1 % (37.0-47.0); Immature Granulocyte Absolute 0.18 K/mm3 (0.00-0.031); Immature Granulocyte Percent A 0.8 % (0-0.5); Lymphocytes Absolute Auto 2.75 K/mm3 (0.9-3.2); Lymphocytes Percent Auto 12.1 % (18.3-44.2); Mean Corpuscular HGB Conc 35.6 g/dl (32-36); Mean Corpuscular Hemoglobin 31.8 pg (26-34); Mean Corpuscular Volume 89.4 fl (80-100); Monocytes Absolute Auto 1.4 K/mm3 (0.1-0.6); Neutrophils Absolute Auto 18.3 K/mm3 (1.3-6.7); Neutrophils Percent Auto 80.3 % (45.5-73.1); Platelet Count Result 319 k/mm3 (150-375); Red Blood Count 4.71 M/mm3 (4.2-5.4); Red Cell Distribution Width 11.6 % (11.5-14.5); White Blood Count 22.8 K/mm3 (4.5-10.0)
[2024-03-20 14:37] LABS: Lactic Acid Reflex 0.8 mmol/L (0.7-2.0)
[2024-03-20 14:39] LABS: Erythrocyte Sedimentation Rate 15 mm/hr (0-20)
[2024-03-20 14:40] LABS: Alanine Aminotransferase 71 U/L (6-35); Albumin Level 4.1 g/dL (3.5-5.1); Alkaline Phosphatase 127 U/L (38-126); Anion Gap 12 mmol/L (4-12); Aspartate Amino Transferase 38 U/L (14-36); Bilirubin,Total 1.1 mg/dL (0.2-1.3); Blood Urea Nitrogen 9 mg/dL (7-17); Calcium 9.3 mg/dL (8.4-10.2); Carbon Dioxide 22 mmol/L (22-30); Chloride 99 mmol/L (98-107); Estimated CRCL calculation 119 ml/min; Estimated Glomerular Filt Rate > 60; Glucose 117 mg/dL (65-110); Potassium 3.7 mmol/L (3.4-5.0); Sodium 133 mmol/L (137-145)
[2024-03-20] MEDS: KETOROLAC 15 MG/ML VIAL (*BKC) IV PUSH ×2 (15:34→19:56)
[2024-03-20 15:52] LABS: CRP 14.1 mg/dL (<1.0)
--- OUTSIDE RECORDS SUMMARY | 2024-03-20 16:57 | XMS_ITS | Clinical Summary ---
Author Organization [facility] Address [facility] [facility] [place] [address] [place] [address] Care Team Providers Care Aerospace Technician Name Role Phone None, Provider MD Primary [...] Department Care Team Description 02/02/2024 5:28 PM OUTSOLE CEMENTER MACHINE - 02/02/2024 5:52 PM OUTSOLE CEMENTER MACHINE Emergency [place] [facility] [facility] [place] [place] [address] Dental Swelling Discharge Disposition: Home or Self Care (Routine Discharge) 02/02/2024 Travel from Last 3 Months Social History Tobacco Use Types Packs/Day Years Used Date Smoking Tobacco: Never Assessed Comments Unknown Sex and Gender Information Value Date Recorded Sex Assigned at Not on file Legal Sex Female 5:55 PM OUTSOLE CEMENTER MACHINE Gender Identity Not on file Sexual Orientation Not on file Last Filed Vital Signs Vital Sign Reading Time Taken Comments Blood Pressure 151/95 02/02/2024 5:31 PM OUTSOLE CEMENTER MACHINE Pulse 112 02/02/2024 5:31 PM OUTSOLE CEMENTER MACHINE Temperature 36.7 ??C (98.1 ??F) 02/02/2024 5:31 PM CS T Respiratory Rate 18 02/02/2024 5:31 PM OUTSOLE CEMENTER MACHINE Oxygen Saturation 97% 02/02/2024 5:31 PM OUTSOLE CEMENTER MACHINE Inhaled Oxygen Concentration - - Weight 103.8 kg (228 lb 12.8 oz) 02/02/2024 5:31 PM OUTSOLE CEMENTER MACHINE Height 154.9 cm (5' 1 ) 02/02/2024 5:31 PM OUTSOLE CEMENTER MACHINE Body Mass Index 43.23 02/02/2024 5:31 PM OUTSOLE CEMENTER MACHINE Plan of Treatment Health Maintenance Due Date [...] patient's age to complete this topic Insurance [facility] Care Teams Aerospace Technician Relationship Specialty Start Date End Date None, Provider, PCP - General UNKNOWN PHYSICIAN SPECIALTY 02/02/24
[2024-03-20] MEDS: PIPERACILLN/TAZ 3.375GM/NS50ML 3.375 GM/50 ML BAG IVPB (17:20)
[2024-03-20] MEDS: SODIUM CHLORIDE 0.9% IV 1,000 ML 999 ML IV CONT ×2 (17:20→18:53)
[2024-03-20 17:25] VITALS: BP 136/87; PULSE 81; RESP 16; O2SAT 96
[2024-03-20] MEDS: SODIUM CHLORIDE 0.9% IV 700 ML 999 ML IV CONT (18:05)
[2024-03-20 18:06] VITALS: BP 134/79; PULSE 73; RESP 16; O2SAT 97
[2024-03-20 19:38] VITALS: PULSE 81; RESP 14; O2SAT 98
== END 2024-03-20 19:55 | disposition short-term general hospital (02) ==
PROVIDERS: Physician Assistant; Emergency Provider Emergency Medicine
DX: K12.2 Cellulitis and abscess of mouth (principal); I10 Essential (primary) hypertension; F41.9 Anxiety disorder, unspecified; F31.9 Bipolar disorder, unspecified; F17.210 Nicotine dependence, cigarettes, uncomplicated; Z90.49 Acquired absence of other specified parts of digestive tract; Z79.899 Other long term (current) drug therapy
CPT/HCPCS: 36415; 70491; 80053; 83605; 85025; 85652; 86140; 87040; 96361; 96365; 96366; 96375; 96376; 99284; J1885; J2543; J7030; Q9967